=== PATIENT | male | born 1995 | race Caucasian/White ===

== ENCOUNTER 2017-05-13 21:15 | Inpatient (IN) | payer OTHER ==
[~2017-05-13] VITALS: Ht 180.3 cm; Wt 101.0 kg
[~2017-05-13 21:15] MED LIST: CEFAZOLIN 1,000 MG ONE; PROPOFOL 10 MG/ML, 20ML ONE
[2017-05-13 21:52] LABS: BASOPHILS # (AUTO) 0.08 x10^3/uL (0-0.1); BASOPHILS % (AUTO) 1 % (0-1); EOSINOPHILS # (AUTO) 0.51 x10^3/uL (0-0.4); EOSINOPHILS % (AUTO) 3 % (1-7); LYMPHOCYTES # (AUTO) 1.69 x10^3/uL (1-3.4); LYMPHOCYTES % (AUTO) 11 % (22-44); MD NO; MEAN CORPUSCULAR HEMOGLOBIN 29.1 pg (27.5-34.5); MEAN CORPUSCULAR VOLUME 85.4 fL (81-97); MEAN PLATELET VOLUME 9.3 fL (7.4-10.4); MONOCYTES # (AUTO) 0.98 x10^3/uL (0.2-0.8); MONOCYTES % (AUTO) 6 % (2-9); NEUTROPHILS # (AUTO) 12.82 x10^3/uL (1.8-6.8); NEUTROPHILS % (AUTO) 80 % (42-75); PLATELET COUNT 196 x10^3/uL (130-400); RED BLOOD COUNT 5.14 x10^6/uL (4.38-5.82); RED CELL DISTRIBUTION WIDTH 12.8 % (9.4-14.8)
[2017-05-13] MEDS ORDERED: MORPHINE SULFATE 4 MG/ML, 1ML ONE (21:55)
[2017-05-13] MEDS ORDERED: ONDANSETRON 2MG/ML, 2ML ONE (21:56)
[2017-05-13] MEDS ORDERED: ONDANSETRON 2MG/ML, 2ML IVPush ONE (22:00)
[2017-05-13] MEDS ORDERED: MORPHINE SULFATE 4 MG/ML, 1ML IVPush PRN ×2 (22:00→23:00)
[2017-05-13] MEDS ORDERED: SODIUM CHLORIDE 0.9% 1,000ML IVBOLUS ONE (22:00)
[2017-05-13 22:01] LABS: ALANINE AMINOTRANSFERASE 27 U/L (12-78); ALBUMIN 4.2 g/dL (3.4-5.0); ANION GAP 9 mmol/L (5-15); CHLORIDE 103 mmol/L (98-107); CREATININE 1.13 mg/dL (0.7-1.3)
[2017-05-13 22:03] LABS: ALKALINE PHOSPHATASE 79 U/L (45-117); BILIRUBIN,TOTAL 0.5 mg/dL (0.2-1.0); TOTAL PROTEIN 8.2 g/dL (6.4-8.2)
[2017-05-13] MEDS ORDERED: D5%-0.45% NACL 1,000 ML IV ONE (22:52)
[2017-05-13 22:55] LABS: MICROSCOPIC NOT IND
[2017-05-13 22:58] LABS: CULTURE INDICATED? NO
[2017-05-13] MEDS ORDERED: CEFOTETAN PMX 1GM/50ML 50 ML IV ONE (23:00)
[2017-05-13] MEDS ORDERED: SODIUM CHLORIDE FLUSH 10ML SYR IVF PRN (23:00)
[2017-05-13 23:30] VITALS: BP 156/93
[2017-05-14] MEDS ORDERED: OMNIPAQUE 350 MG/ML, 100ML BOTTLE ONE (00:20)
[2017-05-14] MEDS ORDERED: CEFOTETAN PMX 1GM/50ML 50 ML IV ONE (02:00)
[2017-05-14] MEDS ORDERED: BUPIVACAINE/PF 0.5% ONE (02:24)
[2017-05-14] MEDS ORDERED: FENTANYL PF 250 MCG/5ML ONE (06:42)
[2017-05-14] MEDS ORDERED: MIDAZOLAM 1 MG/ML, 2ML ONE (06:49)
[2017-05-14] MEDS ORDERED: CEFAZOLIN 1,000 MG ONE (06:50)
[2017-05-14] MEDS ORDERED: PROPOFOL 10 MG/ML, 20ML ONE (06:50)
[2017-05-14] MEDS ORDERED: BUPIVACAINE/PF 0.5% INFIL ONE (07:04)
[2017-05-14] MEDS ORDERED: SUCCINYLCHOLINE 20 MG/ML, 10ML ONE (07:11)
[2017-05-14] MEDS ORDERED: ROCURONIUM 10 MG/ML,10ML ONE (07:11)
[2017-05-14] MEDS ORDERED: DEXAMETHASONE 4 MG/ML, 1ML ONE (07:11)
[2017-05-14] MEDS ORDERED: ONDANSETRON 2MG/ML, 2ML ONE ×3 (07:11→08:21)
[2017-05-14] MEDS ORDERED: MEPERIDINE/PF 25MG/0.5ML IVPush PRN (07:30)
[2017-05-14] MEDS ORDERED: ACETAMINOPHEN 325 MG TABLET PO PRN (07:30)
[2017-05-14] MEDS ORDERED: ONDANSETRON 2MG/ML, 2ML IVPush PRN (07:30)
[2017-05-14] MEDS ORDERED: LABETALOL 5MG/ML, 20ML IV PRN (07:30)
[2017-05-14] MEDS ORDERED: HYDROmorphone 1 MG/ML, 1ML IV PRN (07:30)
[2017-05-14] MEDS ORDERED: PROMETHAZINE 12.5 MG SUPP PR PRN (07:30)
[2017-05-14] MEDS ORDERED: hydrALAzine 20 MG/ML, 1ML IV PRN (07:30)
[2017-05-14] MEDS: FENTANYL PF 100 MCG/2ML IV PRN ×2 (07:35→07:45)
[2017-05-14] MEDS: OXYcodone 5 MG/5 ML ORAL.SOL UDC PO PRN ×2 (07:40→13:13)
[2017-05-14] MEDS ORDERED: MEPERIDINE/PF 50 MG/ML ONE (07:41)
[2017-05-14] MEDS ORDERED: FENTANYL PF 100 MCG/2ML ONE (07:42)
[2017-05-14] MEDS ORDERED: OXYcodone 5 MG/5 ML ORAL.SOL UDC ONE (07:42)
[2017-05-14] MEDS: ONDANSETRON 2MG/ML, 2ML IVPush PRN ×2 (08:20→13:14)
[2017-05-14] MEDS ORDERED: OXYcodone 5 MG/5 ML ORAL.SOL UDC PO PRN (09:30)
[2017-05-14] MEDS ORDERED: OXYC-302 PO (10:45)
== END 2017-05-14 13:50 | disposition home or self-care (01) | DRG 340 ==
LOC: ED 21:48 → EDIP 22:52 → 4NOR 23:25
PROVIDERS: ADMIT Surgery; ATTEND Surgery
PROC: 0DTJ4ZZ Resection of Appendix, Percutaneous Endoscopic Approach (ICD-10-PCS; principal; 2017-05-14 07:00)
DX: K35.3 Acute appendicitis with localized peritonitis (principal); F10.10 Alcohol abuse, uncomplicated; F17.200 Nicotine dependence, unspecified, uncomplicated; K59.09 Other constipation
CPT/HCPCS: 36415; 74177; 80053; 81003; 83690; 85025; 88304; 96374; 96375; J0690; J1100; J2175; J2250; J2405; J2704; J3010; J3490; Q9967; J0330; J7030; S0074